=== PATIENT | male | born 1985 | race Caucasian/White ===

== ENCOUNTER 2024-10-17 10:15 | Day surgery (SDC) | payer BC ==
[~2024-10-17 10:15] MED LIST: Sensorcaine 0.25% 10 ML ONE
[2024-10-17] MEDS: Lactated Ringers 1,000 ML IV SCH (10:25)
[2024-10-17] MEDS: CEFAZOLIN 2 GM/100 ML NaCl 2 GM/100 ML IVPB IV SCH (10:25)
[2024-10-17 10:32] VITALS: RESP 16; TEMP 97.5
[2024-10-17] MEDS: celeBREX 100 MG PO ONE (10:46)
[2024-10-17] MEDS: TYLENOL EXTRA STRENGTH 500 MG PO ONE (10:47)
[2024-10-17] MEDS: Decadron 4 MG PO ONE (10:47)
[2024-10-17] MEDS: NEURONTIN PO ONE (10:47)
[2024-10-17] MEDS ORDERED: propofoL IV ONE (11:06)
[2024-10-17] MEDS ORDERED: BRIDION 200MG/2ML IV ONE (11:06)
[2024-10-17] MEDS ORDERED: Zofran 4 MG/2 ML VIAL ONE (11:06)
[2024-10-17] MEDS ORDERED: ROCURONIUM BROMIDE IV ONE (11:06)
[2024-10-17] MEDS ORDERED: Xylocaine-Mpf 2% 5 Ml Vial ONE (11:06)
[2024-10-17] MEDS ORDERED: SUBLIMAZE 100 MCG/2 ML ONE ×2 (11:07→14:02)
[2024-10-17] MEDS ORDERED: Versed 2 MG/2 ML Injection ONE (11:07)
[2024-10-17] MEDS ORDERED: DEXMEDETOMIDINE 80 MCG/20ML-NS IV ONE (12:43)
[2024-10-17] MEDS ORDERED: Ephedrine Sulfate 50 MG/ML ONE (12:58)
[2024-10-17] MEDS ORDERED: Sensorcaine 0.25% 10 ML ONE (13:25)
[2024-10-17] MEDS ORDERED: Lactated Ringers 1,000 ML IV ONE (13:32)
[2024-10-17] MEDS ORDERED: TORAdol 30 mg Injection ONE (13:41)
[2024-10-17] MEDS ORDERED: DILAUDID 0.5 MG/0.5 ML SYRINGE ONE (14:02)
[2024-10-17 15:00] VITALS: BP 114/83; PULSE 72; O2SAT 97
--- NOTE | 2024-10-18 10:47 | OP ---
SURGERY DATE/TIME: 10/17/2024 [id number] PREOPERATIVE DIAGNOSIS: Right inguinal hernia. POSTOPERATIVE DIAGNOSIS: Right inguinal hernia. PROCEDURE: Open right inguinal hernia repair with mesh, Kevyn. SURGEON: Scooter Ma MD ANESTHESIA: General. ESTIMATED BLOOD LOSS: Minimal. CONDITION: Stable. COMPLICATIONS: None. SPECIMEN: Hernia contents. INDICATIONS: Patient is a 39-year-old who presents with symptomatic right inguinal hernia reducible on exam. Discussion was had with patient. Risks of infection, bleeding, injury to nearby structure, hernia recurrence, acute pain, chronic pain, mesh complications, and options of the robotic laparoscopic approach versus open, and he prefers to just do it open. FINDINGS: Indirect hernia with cord lipoma, ilioinguinal nerve excised. DESCRIPTION OF PROCEDURE: Patient was brought to the operating room. General anesthesia induced. Routinely positioned, prepped, and draped. Time-out performed. Received preoperative antibiotic. A right groin incision was made and carried down through Debbie's. The external oblique was incised. The cord and canal were totally freed up that the floor was satisfactory. There was a good-sized cord lipoma hernia which was highly ligated with 2-0 PDS suture. The Bard plain Keyhole polypropylene mesh was then placed and was going to be directly opposing the nerves, so the ilioinguinal nerve was highly excised. The mesh was then placed, sewn to pubic tubercle shelving edge with 2-0 Prolene suture running. Internal ring recreated with 2-0 Prolene suture. The superior edge was sewn in place with 2-0 PDS interrupted sutures. That was flat, hemostatic, and satisfactory. The external oblique was closed with 3-0 Vicryl suture, the Debbie's with 3-0 Vicryl, deep dermal 3-0 Vicryl, skin with 4-0 Vicryl sutures. Marcaine had been injected. Steri-Strips and sterile dressings applied. All counts were correct. Patient tolerated the procedure well. Plan is for extubation.
== END 2024-10-17 15:10 | disposition home or self-care (01) ==
LOC: SDC 10:15
PROVIDERS: ATTEND Surgery
DX: K40.90 Unilateral inguinal hernia, without obstruction or gangrene, not specified as recurrent (principal)
CPT/HCPCS: 49505; C1781; J0690; J1171; J1885; J2250; J2405; J2704; J3010; A9270-GY